=== PATIENT | male | born 1975 | race Caucasian/White ===

== ENCOUNTER 2016-08-15 05:04 | Emergency (ER) | payer OTHER ==
--- NOTE | 2016-08-15 07:20 | ED ---
Lower Extremity - HPI Summary HPI Summary: Patient presents with left knee pain that began three days ago without known injury and has become progressively more painful. He denies previous injury to this knee. He is morbidly obese and does a lot of walking, so he thinks he could have "just walked too much". He feels like he can't bend the knee, but denies instability, locking or catching. Denies calf pain or SOB. - History of Current Complaint Chief Complaint: EDExtremityLower Stated Complaint: LT KNEE PAIN/SWELLING Time Seen by Provider: 08/15/16 05:05 Hx Obtained From: Patient Mechanism Of Injury: Unknown Onset of Pain: Days - 3 Onset/Duration: Days - three days ago Severity Initially: Moderate Severity Currently: Moderate Pain Intensity: 4 Timing: Constant Location: Is Discrete @ - left knee Character Of Pain: Aching, Stiffness Associated Signs And Symptoms: Positive: Swelling, Knee Pain Aggravating Factor(s): Standing, Ambulation, Movement Alleviating Factor(s): Rest Able to Bear Weight: Yes - with pain - Allergies/Home Medications Allergies/Adverse Reactions: Allergies Allergy/AdvReac Type Severity Reaction Status Date / Time Penicillins Allergy Unknown Unknown Verified 10/31/15 07:35 Reaction Details seasonal Allergy Unknown Congestion Uncoded 10/31/15 07:35 PMH/Surg Hx/FS Hx/Imm Hx Endocrine/Hematology History: Denies: Hx Anticoagulant Therapy, Hx Diabetes, Hx Thyroid Disease Cardiovascular History: Reports: Hx Hypercholesterolemia, Hx Hypertension, Other Cardiovascular Problems/Disorders - HYPERTENSION Denies: Hx Congestive Heart Failure, Hx Pacemaker/ICD Respiratory History: Reports: Hx Sleep Apnea - evaluation for 10/2013, Other Respiratory Problems/Disorders - ex-smoker Denies: Hx Asthma, Hx Chronic Obstructive Pulmonary Disease (COPD) GI History: Reports: Hx Gastroesophageal Reflux Disease, Other GI Disorders - HYPERCHOLESTEROLEMIA History: Reports: Hx Kidney Stones - hx Denies: Hx Dialysis, Hx Renal Disease Musculoskeletal History: Reports: Other Musculoskeletal History - severe morbid obesity Neurological History: Denies: Hx Dementia, Hx Seizures Psychiatric History: Reports: Hx Anxiety, Hx Depression - meds Denies: Hx Substance Abuse Infectious Disease History: No Infectious Disease History: Denies: Hx Hepatitis, Hx Human Immunodeficiency Virus (HIV), Traveled Outside the [place] in Last 30 Days - Family History Known Family History: Positive: Hypertension, Other - MS - Social History Occupation: Unemployed Lives: Alone Alcohol Use: Rare Hx Substance Use: No Substance Use Type: Reports: None Hx Tobacco Use: Yes - QUIT 04/2006 Smoking Status (MU): Former Smoker Review of Systems Positive: Myalgia, Decreased ROM Negative: Weakness, Paresthesia, Numbness All Other Systems Reviewed And Are Negative: Yes Physical Exam Triage Information Reviewed: Yes Vital Signs On Initial Exam: Initial Vitals Temp Pulse Resp BP Pulse Ox 98.9 F 87 20 141/77 94 08/15/16 05:35 08/15/16 05:35 08/15/16 05:35 08/15/16 05:35 08/15/16 05:35 Vital Signs Reviewed: Yes Appearance: Positive: Well-Appearing, No Pain Distress, Obese Skin: Positive: Warm, Skin Color Reflects Adequate Perfusion, Dry, Soft Head/Face: Positive: Normal Head/Face Inspection Eyes: Positive: EOMI, FRANCHESCA, Conjunctiva Clear ENT: Positive: Hearing grossly normal Respiratory/Lung Sounds: Positive: Breath Sounds Present Cardiovascular: Positive: RRR Musculoskeletal: Positive: Limited @ - extension to 0, flexion to 70, Pain @ - TTP lateral joint line and LCL; non-tender medial joint, MCL, patella; stable varus/valgus stress; body habitus limits exams.. Negative: Edema Left Neurological: Positive: Sensory/Motor Intact, Alert, Oriented to Person Place, Time, NV Bundle Intact Distally, Abnormal Gait Psychiatric: Positive: Affect/Mood Appropriate AVPU Assessment: Alert - Melvin Coma Scale Coma Scale Total: 15 Diagnostics - Vital Signs Vital Signs Temp Pulse Resp BP Pulse Ox 08/15/16 06:00 87 95 08/15/16 05:43 89 93 08/15/16 05:35 98.9 F 87 20 141/77 94 - Laboratory Lab Statement: Any lab studies that have been ordered have been reviewed, and results considered in the medical decision making process. - Radiology No standard instances Xray Interpretation: No Acute Changes Radiology Interpretation Completed By: Radiologist Lower Extremity Course/Dx - Diagnoses Differential Diagnosis/HQI/PQRI: Positive: Arthritis, Bursitis, Cellulitis, Contusion, Dislocation, DVT, Fracture (Closed), Infection, Sprain, Strain Provider Diagnoses: Swelling of left knee joint Discharge - Discharge Plan Condition: Stable Disposition: HOME Patient Education Materials: Swollen Knee Joint (ED) Referrals: Najma Snowden MD [Primary Care Provider] - Additional Instructions: Please rest your knee, elevate above your heart, use Ibuprofen 600mg three times daily with meals, and ice several times daily to help reduce swelling and pain. It can take knee swelling 7-10 days to improve. Follow-up with your primary care provider as scheduled or return to the emergency department if your symptoms worsen.
--- NOTE | 2016-08-15 07:22 | RAD ---
INDICATION: Left knee pain COMPARISON: October 31, 2015 TECHNIQUE: AP, lateral, and oblique views were obtained. FINDINGS: The bony structures, joint spaces, and soft tissues are normal for age. IMPRESSION: NO ACUTE BONY CHANGE.
[2016-08-15 07:30] VITALS: BP 134/75
== END 2016-08-15 07:34 | disposition home or self-care (01) ==
LOC: ED 05:04
DX: M25.462 Effusion, left knee (principal); E66.01 Morbid (severe) obesity due to excess calories; Z88.0 Allergy status to penicillin; I10 Essential (primary) hypertension; E78.00 Pure hypercholesterolemia, unspecified; G47.30 Sleep apnea, unspecified; Z87.891 Personal history of nicotine dependence; K21.9 Gastro-esophageal reflux disease without esophagitis; F41.9 Anxiety disorder, unspecified; F32.9 Major depressive disorder, single episode, unspecified; Z68.43 Body mass index [BMI] 50.0-59.9, adult
CPT/HCPCS: 99281

== ENCOUNTER 2016-10-15 06:43 | Emergency (ER) | payer OTHER ==
[2016-10-15] MEDS ORDERED: Naproxen TAB* 250 MG PO ONE (07:57)
[2016-10-15 09:01] LABS: Hematocrit 47 % (42-52); Hemoglobin 15.6 g/dl (14.0-18.0); Mean Corpuscular HGB Conc 33 g/dl (31-36); Mean Corpuscular Hemoglobin 30 pg (27-31); Mean Corpuscular Volume 89 fL (80-94); Mean Platelet Volume 9 um3 (7.4-10.4); Red Blood Count 5.27 10^6/ul (4.0-5.4); Red Cell Distribution Width 13 % (10.5-15); White Blood Count 5.9 10^3/ul (3.5-10.8)
[2016-10-15 09:15] LABS: Albumin 3.9 g/dL (3.2-5.2); BUN/Creatinine Ratio 12.7 (8-20); Calcium 8.8 mg/dL (8.6-10.3); EGFR African American 140.4 (>60); EGFR Non-African American 109.2 (>60); Globulin 2.7 g/dL (2-4); Potassium 3.8 mmol/L (3.5-5.0); Total Bilirubin 0.4 mg/dL (0.2-1.0); Total Protein 6.6 g/dL (6.4-8.9); Uric Acid 5.6 mg/dL (4.4-7.6)
[2016-10-15 10:10] LABS: Erythrocyte Sed Rate 0 mm/Hr (0-14)
[2016-10-15 10:48] VITALS: BP 138/90
[2016-10-16 15:19] LABS: Rheumatoid Factor <15 IU/mL (<15)
--- NOTE | 2016-10-19 14:58 | ED ---
Valentino Beavers Matthew, scribed for Robert Mendoza MD on 10/15/16 at 0804 . Upper Extremity Pain - HPI Summary HPI Summary: A 41 y/o male presents to the ED with right elbow pain since a week ago. The pain is rated 4/10 in severity. The pain is worse with extension of the elbow and griping objects. The patient denies trauma, overuse, or any other injuries. The patient took ibuprofen at 02:00 with some relief. Hx of psoriasis. No Hx of Diabetes - History of Current Complaint Chief Complaint: EDExtremityUpper Stated Complaint: RIGHT ELBOW PAIN Time Seen by Provider: 10/15/16 07:26 Hx Obtained From: Patient Mechanism Of Injury: Unknown Onset/Duration: Started Weeks Ago - 1, Atraumatic, Still Present Timing: Constant Severity Initially: Moderate Severity Currently: Moderate Pain Location: Elbow - RT Aggravating Factor(s): Extension, Other - griping large objects with the right hand Alleviating Factor(s): Nothing Associated Signs & Symptoms: Positive: Other - restricted ROM of the left elbow - Allergies/Home Medications Allergies/Adverse Reactions: Allergies Allergy/AdvReac Type Severity Reaction Status Date / Time Penicillins Allergy Unknown Unknown Verified 10/31/15 07:35 Reaction Details seasonal Allergy Unknown Congestion Uncoded 10/31/15 07:35 PMH/Surg Hx/FS Hx/Imm Hx Endocrine/Hematology History: Denies: Hx Anticoagulant Therapy, Hx Diabetes, Hx Thyroid Disease Cardiovascular History: Reports: Hx Hypercholesterolemia, Hx Hypertension, Other Cardiovascular Problems/Disorders - HYPERTENSION Denies: Hx Congestive Heart Failure, Hx Pacemaker/ICD Respiratory History: Reports: Hx Sleep Apnea - evaluation for 10/2013, Other Respiratory Problems/Disorders - ex-smoker Denies: Hx Asthma, Hx Chronic Obstructive Pulmonary Disease (COPD) GI History: Reports: Hx Gastroesophageal Reflux Disease, Other GI Disorders - HYPERCHOLESTEROLEMIA History: Reports: Hx Kidney Stones - hx Denies: Hx Dialysis, Hx Renal Disease Musculoskeletal History: Reports: Other Musculoskeletal History - severe morbid obesity Neurological History: Denies: Hx Dementia, Hx Seizures Psychiatric History: Reports: Hx Anxiety, Hx Depression - meds Denies: Hx Substance Abuse Infectious Disease History: No Infectious Disease History: Denies: Hx Hepatitis, Hx Human Immunodeficiency Virus (HIV), Traveled Outside the [place] in Last 30 Days - Family History Known Family History: Positive: Hypertension, Other - MS - Social History Alcohol Use: Rare Hx Substance Use: No Substance Use Type: Reports: None Hx Tobacco Use: Yes - QUIT 04/2006 Smoking Status (MU): Former Smoker Review of Systems Constitutional: Negative Negative: Fever, Chills Eyes: Negative Negative: Erythema ENT: Negative Negative: Sore Throat Cardiovascular: Negative Negative: Chest Pain Respiratory: Negative Negative: Shortness Of Breath, Cough Gastrointestinal: Negative Negative: Abdominal Pain, Vomiting, Diarrhea, Nausea Genitourinary: Negative Negative: dysuria, hematuria Positive: Myalgia - RT elbow pain Skin: Other - psoriasis Neurological: Negative Negative: Weakness Psychological: Normal All Other Systems Reviewed And Are Negative: Yes Physical Exam Triage Information Reviewed: Yes Vital Signs On Initial Exam: Initial Vitals Temp Pulse Resp BP Pulse Ox 98.9 F 93 22 153/89 96 10/15/16 06:51 10/15/16 06:51 10/15/16 06:51 10/15/16 06:51 10/15/16 06:51 Vital Signs Reviewed: Yes Appearance: Positive: Obese - Morbidly Skin: Positive: Other - diffuse psoriasis Head/Face: Positive: Other - Normocephalic; Atraumatic Eyes: Positive: Conjunctiva Clear Neck: Positive: No Lymphadenopathy, Other: - Full ROM; NO JVD Respiratory/Lung Sounds: Positive: Breath Sounds Present, Other - Normal Effort. Negative: Rales, Rhonchi, Stridor, Tracheal Deviation, Wheezes Cardiovascular: Positive: RRR, Pulses are Symmetrical in both Upper and Lower Extremities Abdomen Description: Positive: Nontender, Soft, Other: - NO rebound. Negative: Distended, Guarding Bowel Sounds: Positive: Present Musculoskeletal: Positive: Other - diminished active and passive ROM of the right elbow; rose mary tenderness over the right elbow joint; NO hand swelling or tenderness; Full care technician strength; NO erythema; NO swelling Neurological: Positive: Alert, Oriented to Person Place, Time Psychiatric: Positive: Affect/Mood Appropriate - Melvin Coma Scale Coma Scale Total: 15 Diagnostics - Vital Signs Vital Signs Temp Pulse Resp BP Pulse Ox 10/15/16 07:13 81 98 10/15/16 07:11 145/86 10/15/16 06:51 98.9 F 93 22 153/89 96 - Laboratory Result Diagrams: 10/15/16 08:40 10/15/16 08:40 Lab Statement: Any lab studies that have been ordered have been reviewed, and results considered in the medical decision making process. Course/Dx - Course Assessment/Plan: A 41 y/o male presents to the ED with right elbow pain since a week ago. The pain is rated 4/10 in severity. The pain is worse with extension of the elbow and griping objects. The patient denies trauma, overuse, or any other injuries. Labs were reviewed. In the ED course, the patient was give naproxen. The patient will be discharged home to follow-up with his PCP. - Diagnoses Provider Diagnoses: Elbow tendinitis Discharge - Discharge Plan Condition: Stable Disposition: HOME Prescriptions: Naproxen TAB* [Naprosyn TAB*] 500 mg PO Q8H PRN #15 tab PRN Reason: Pain Scale 6-10 Patient Education Materials: Tendinitis (ED) Referrals: Najma Snowden MD [Primary Care Provider] - 3 Days Additional Instructions: Please follow-up with your primary care physician in 3 days. Please return to the ED for changing or worsening symptoms. The documentation as recorded by the Valentino siddiqui Matthew accurately reflects the service I personally performed and the decisions made by , Robert Mendoza MD.
== END 2016-10-15 10:47 | disposition home or self-care (01) ==
LOC: ED 06:43
DX: M77.9 Enthesopathy, unspecified (principal)
CPT/HCPCS: 36415; 80053; 84550; 85027; 85652; 86038; 86141; 86431; 87040; 99283; A9270-GY

== ENCOUNTER 2016-11-12 04:25 | Emergency (ER) | payer OTHER ==
--- NOTE | 2016-11-12 04:51 | ED ---
I, Jerson,Yennifer, scribed for Dyllan Lucas MD on 11/12/16 at 0443 . Upper Extremity Pain - HPI Summary HPI Summary: This 41 y/o male presents to ED for gradually worsening right elbow pain since 3 days ago. Pt c/o limited ROM and pain that is worse with movement. Pt attempted to control his pain with ibuprofen, which he uses chronically for about a month. He decided to visit ED when he wasn't able to get an appointment in near future with his own primary care provider. PMHx includes HTN, HLD, psoriasis, and GERD. - History of Current Complaint Stated Complaint: RT ELBOW PAIN Hx Obtained From: Patient, Medical Records Mechanism Of Injury: Unknown Onset/Duration: Started Days Ago, Atraumatic, Still Present Timing: Constant Severity Initially: Moderate Severity Currently: Moderate Pain Location: Elbow - right elbow pain Character: Dull Aggravating Factor(s): Movement Alleviating Factor(s): Nothing Associated Signs & Symptoms: Positive: Other - limited ROM - Allergies/Home Medications Allergies/Adverse Reactions: Allergies Allergy/AdvReac Type Severity Reaction Status Date / Time Penicillins Allergy Unknown Unknown Verified 10/31/15 07:35 Reaction Details seasonal Allergy Unknown Congestion Uncoded 10/31/15 07:35 PMH/Surg Hx/FS Hx/Imm Hx Endocrine/Hematology History: Denies: Hx Anticoagulant Therapy, Hx Diabetes, Hx Thyroid Disease Cardiovascular History: Reports: Hx Hypercholesterolemia, Hx Hypertension, Other Cardiovascular Problems/Disorders - HYPERTENSION Denies: Hx Congestive Heart Failure, Hx Pacemaker/ICD Respiratory History: Reports: Hx Sleep Apnea - evaluation for 10/2013, Other Respiratory Problems/Disorders - ex-smoker Denies: Hx Asthma, Hx Chronic Obstructive Pulmonary Disease (COPD) GI History: Reports: Hx Gastroesophageal Reflux Disease, Other GI Disorders - HYPERCHOLESTEROLEMIA History: Reports: Hx Kidney Stones - hx Denies: Hx Dialysis, Hx Renal Disease Musculoskeletal History: Reports: Other Musculoskeletal History - severe morbid obesity Neurological History: Denies: Hx Dementia, Hx Seizures Psychiatric History: Reports: Hx Anxiety, Hx Depression - meds Denies: Hx Substance Abuse Infectious Disease History: Denies: Hx Hepatitis, Hx Human Immunodeficiency Virus (HIV) - Family History Known Family History: Positive: Hypertension, Other - MS - Social History Alcohol Use: Rare Hx Substance Use: No Substance Use Type: Reports: None Hx Tobacco Use: Yes - QUIT 04/2006 Smoking Status (MU): Former Smoker Review of Systems Negative: Fever Positive: Other - right elbow pain All Other Systems Reviewed And Are Negative: Yes Physical Exam Triage Information Reviewed: Yes Vital Signs Reviewed: Yes Appearance: Positive: No Pain Distress, Obese Skin: Positive: Warm Head/Face: Positive: Normal Head/Face Inspection Eyes: Positive: FRANCHESCA ENT: Positive: Hearing grossly normal Respiratory/Lung Sounds: Positive: Breath Sounds Present Musculoskeletal: Positive: Other - rt elbow with psoriatic rash, from, no deformity Neurological: Positive: Sensory/Motor Intact Diagnostics - Laboratory Lab Statement: Any lab studies that have been ordered have been reviewed, and results considered in the medical decision making process. - Radiology Right elbow Xray Interpretation: No Acute Changes Radiology Interpretation Completed By: ED Physician Course/Dx - Diagnoses Provider Diagnoses: Elbow pain Discharge - Discharge Plan Condition: Stable Disposition: HOME Patient Education Materials: Elbow Sprain (ED) Referrals: Najma Snowden MD [Primary Care Provider] - 2 Days Emilie Tian MD [Medical Doctor] - The documentation as recorded by the Jerson siddiqui Soohyun accurately reflects the service I personally performed and the decisions made by , Dyllan Lucas MD.
[2016-11-12 05:02] VITALS: BP 159/89
--- NOTE | 2016-11-12 08:04 | RAD ---
HISTORY: Right elbow pain COMPARISONS: None VIEWS: 4, Frontal, lateral, and oblique views of the right elbow FINDINGS: BONE DENSITY: Normal. BONES: There is no displaced fracture. JOINTS: There is no arthropathy. There is no posterior supracondylar fat pad to suggest a joint effusion. ALIGNMENT: There is no dislocation. SOFT TISSUES: Unremarkable. OTHER FINDINGS: None. IMPRESSION: NO ACUTE OSSEOUS INJURY. IF SYMPTOMS PERSIST, RECOMMEND REPEAT IMAGING.
== END 2016-11-12 05:01 | disposition home or self-care (01) ==
LOC: ED 04:25
DX: M25.521 Pain in right elbow (principal); I10 Essential (primary) hypertension; K21.9 Gastro-esophageal reflux disease without esophagitis; E78.5 Hyperlipidemia, unspecified; Z88.0 Allergy status to penicillin; Z87.891 Personal history of nicotine dependence
CPT/HCPCS: 99281

== ENCOUNTER 2017-01-12 04:31 | Emergency (ER) | payer OTHER ==
[2017-01-12] MEDS ORDERED: NS 0.9% 1000 ML* 1,000 ML IV ONE (05:08)
[2017-01-12] MEDS ORDERED: Morphine INJ* 4 MG/ML 1 ML SYRINGE IV ONE (05:08)
[2017-01-12] MEDS ORDERED: Ondansetron INJ* 2 MG/ML VIAL IV ONE (05:08)
[2017-01-12 05:36] LABS: Hematocrit 46 % (42-52); Hemoglobin 15.6 g/dl (14.0-18.0); Mean Corpuscular HGB Conc 34 g/dl (31-36); Mean Corpuscular Hemoglobin 30 pg (27-31); Mean Corpuscular Volume 88 fL (80-94); Mean Platelet Volume 9 um3 (7.4-10.4); Red Blood Count 5.26 10^6/ul (4.0-5.4); Red Cell Distribution Width 13 % (10.5-15); White Blood Count 7.4 10^3/ul (3.5-10.8)
[2017-01-12 05:52] LABS: ALT 30 U/L (7-52); Albumin 4.1 g/dL (3.2-5.2); Alkaline Phosphatase 72 U/L (34-104); Blood Urea Nitrogen 20 mg/dL (6-24); C Reactive Protein 3.47 mg/L (< 5.00); CO2 Carbon Dioxide 20 mmol/L (22-32); Calcium 8.9 mg/dL (8.6-10.3); Chloride 107 mmol/L (101-111); EGFR African American 94.8 (>60); EGFR Non-African American 73.7 (>60); Globulin 2.9 g/dL (2-4); Glucose 129 mg/dL (70-100); Lipase 18 U/L (11.0-82.0); Sodium 137 mmol/L (133-145)
[2017-01-12 05:57] LABS: Anion Gap 10 mmol/L (2-11)
[2017-01-12 06:25] LABS: Magnesium 1.6 mg/dL (1.9-2.7)
[2017-01-12] MEDS ORDERED: Magnesium Sulfate 2 GM IV* 2 GM/50 ML BAG IVPB ONE (06:26)
--- NOTE | 2017-01-12 06:27 | ED ---
Wild Beavers Aidan, scribed for Gini Maria MD on 01/12/17 at 0620 . Abdominal Pain/Male - HPI Summary HPI Summary: 41 y/o male presents to the ED with a complaint of acute, [id number] ( current pain is 3/10) episodes of left-sided abdominal pain that has persisted for the past 4 days. 4 days ago, he developed nausea after a meal. 3 days ago, he took Pepto-Bismol which slightly alleviated his abdominal pain for roughly 6 hours. When the pain came back, it became constant. Associated symptoms include intermittent episodes of vomiting and flatus. He denies any diarrhea. - History of Current Complaint Chief Complaint: EDAbdPain Stated Complaint: UPSET STOMACH Time Seen by Provider: 01/12/17 05:08 Hx Obtained From: Patient Onset/Duration: Sudden Onset, Lasting Days, Still Present Timing: Intermittent - initially intermittent but pain became constant Severity Initially: Moderate Severity Currently: Mild Pain Intensity: 3 - current pain Pain Scale Used: 0-10 Numeric Location: Discrete At: LUQ, Discrete At: LLQ Radiates: No Character: Sharp Aggravating Factor(s): Other: - unknown, however, sx were first noticed after eating Alleviating Factor(s): Other: - Pepto-Bismol Associated Signs And Symptoms: Positive: Nausea, Vomiting, Other - flatus. Negative: Diarrhea - Allergies/Home Medications Allergies/Adverse Reactions: Allergies Allergy/AdvReac Type Severity Reaction Status Date / Time Penicillins Allergy Unknown Unknown Verified 10/31/15 07:35 Reaction Details seasonal Allergy Unknown Congestion Uncoded 10/31/15 07:35 PMH/Surg Hx/FS Hx/Imm Hx Endocrine/Hematology History: Denies: Hx Anticoagulant Therapy, Hx Diabetes, Hx Thyroid Disease Cardiovascular History: Reports: Hx Hypercholesterolemia, Hx Hypertension, Other Cardiovascular Problems/Disorders - HYPERTENSION Denies: Hx Congestive Heart Failure, Hx Pacemaker/ICD Respiratory History: Reports: Hx Sleep Apnea - evaluation for 10/2013, Other Respiratory Problems/Disorders - ex-smoker Denies: Hx Asthma, Hx Chronic Obstructive Pulmonary Disease (COPD) GI History: Reports: Hx Gastroesophageal Reflux Disease, Other GI Disorders - HYPERCHOLESTEROLEMIA History: Reports: Hx Kidney Stones - hx Denies: Hx Dialysis, Hx Renal Disease Musculoskeletal History: Reports: Other Musculoskeletal History - severe morbid obesity Denies: Hx Osteoporosis Neurological History: Denies: Hx Dementia, Hx Seizures Psychiatric History: Reports: Hx Anxiety, Hx Depression - meds Denies: Hx Substance Abuse Infectious Disease History: No Infectious Disease History: Denies: Hx Hepatitis, Hx Human Immunodeficiency Virus (HIV), Traveled Outside the [place] in Last 30 Days - Family History Known Family History: Positive: Hypertension, Other - MS, hypercholesteremia - Social History Occupation: Unemployed Lives: With Family Alcohol Use: Rare Hx Substance Use: No Substance Use Type: Reports: None Hx Tobacco Use: Yes - QUIT 04/2006 Smoking Status (MU): Former Smoker Review of Systems - ROS Summary Review of Systems Summary: 41 y/o male presents to the ED with a complaint of acute, moderate episodes of left-sided abdominal pain that has persisted for the past 4 days. 4 days ago, he developed nausea after a meal. 3 days ago, he took Pepto-Bismol which slightly alleviated his abdominal pain for roughly 6 hours. When the pain came back, it became constant. Associated symptoms include intermittent episodes of vomiting and flatus. He denies any diarrhea. Constitutional: Negative Eyes: Negative ENT: Negative Cardiovascular: Negative Respiratory: Negative Positive: Abdominal Pain, Vomiting, Nausea, Other - flatus. Negative: Diarrhea Genitourinary: Negative Musculoskeletal: Negative Skin: Negative Neurological: Negative Psychological: Normal All Other Systems Reviewed And Are Negative: Yes Physical Exam - Summary Physical Exam Summary: General: Well appearing, no pain distress Skin: Warm, Skin Color Reflects Adequate Perfusion, Dry Eyes: EOMI, FRANCHESCA ENT: Pharynx normal, TMs normal Neck: Supple, nontender Respiratory: CTA, breath sounds present, no rhonchi, no wheezes, no rales Cardiovascular: RRR, no murmur, no rub, no gallop Abdomen: Soft, Non-distended, no guarding, no rebound; POSITIVE: LLQ pain Bowel: Present Musculoskeletal: [place], No edema Neuro: Sensory/motor intact, A&Ox3, CN intact 2-12 Psych: Affect/mood appropriate Triage Information Reviewed: Yes Vital Signs On Initial Exam: Initial Vitals Temp Pulse Resp BP Pulse Ox 97.7 F 94 18 142/94 97 01/12/17 04:41 01/12/17 04:41 01/12/17 04:41 01/12/17 04:41 01/12/17 04:41 Vital Signs Reviewed: Yes - [place] Coma Scale Coma Scale Total: 15 Diagnostics - Vital Signs Vital Signs Temp Pulse Resp BP Pulse Ox 01/12/17 05:22 18 01/12/17 04:43 97.7 F 94 18 142/94 97 01/12/17 04:41 97.7 F 94 18 142/94 97 - Laboratory Lab Results: Lab Results 01/12/17 01/12/17 Range/Units 05:25 05:25 WBC 7.4 (3.5-10.8) 10^3/ul RBC 5.26 (4.0-5.4) 10^6/ul Hgb 15.6 (14.0-18.0) g/dl Hct 46 (42-52) % MCV 88 (80-94) fL MCH 30 (27-31) pg MCHC 34 (31-36) g/dl RDW 13 (10.5-15) % Plt Count 247 (150-450) 10^3/ul MPV 9 (7.4-10.4) um3 Neut % (Auto) 61.0 (38-83) % Lymph % (Auto) 24.3 L (25-47) % [place] % (Auto) 8.3 (1-9) % Eos % (Auto) 2.9 (0-6) % Baso % (Auto) 3.5 H (0-2) % Absolute Neuts (auto) 4.5 (1.5-7.7) 10^3/ul Absolute Lymphs (auto) 1.8 (1.0-4.8) 10^3/ul Absolute Monos (auto) 0.6 (0-0.8) 10^3/ul Absolute Eos (auto) 0.2 (0-0.6) 10^3/ul Absolute Basos (auto) 0.3 H (0-0.2) 10^3/ul Absolute Nucleated RBC 0 10^3/ul Nucleated RBC % 0.1 Sodium 137 (133-145) mmol/L Potassium TNP Chloride 107 (101-111) mmol/L Carbon Dioxide 20 L (22-32) mmol/L Anion Gap 10 (2-11) mmol/L BUN 20 (6-24) mg/dL Creatinine 1.11 (0.67-1.17) mg/dL Est GFR ( Amer) 94.8 (>60) Est GFR (Non-Af Amer) 73.7 (>60) BUN/Creatinine Ratio 18.0 (8-20) Glucose 129 H (70-100) mg/dL Calcium 8.9 (8.6-10.3) mg/dL Magnesium TNP Total Bilirubin 0.50 (0.2-1.0) mg/dL AST TNP ALT 30 (7-52) U/L Alkaline Phosphatase 72 (34-104) U/L C-Reactive Protein 3.47 (< 5.00) mg/L Total Protein 7.0 (6.4-8.9) g/dL Albumin 4.1 (3.2-5.2) g/dL Globulin 2.9 (2-4) g/dL Albumin/Globulin Ratio 1.4 (1-3) Lipase 18 (11.0-82.0) U/L Result Diagrams: 01/12/17 05:25 01/12/17 06:00 Lab Statement: Any lab studies that have been ordered have been reviewed, and results considered in the medical decision making process. Abdominal Pain Fem Course/Dx - Course Course Of Treatment: 41 yo male llq pain awaiting urine and ct will be signed out to Dr. Rosas - Diagnoses Provider Diagnoses: Abdominal pain Discharge - Discharge Plan Condition: Stable Disposition: OTHER Discharge Disposition Comment: to be determined The documentation as recorded by the Wild siddiqui Aidan accurately reflects the service I personally performed and the decisions made by me, Gini Maria MD.
[2017-01-12] MEDS ORDERED: Iohexol 300* (CONTRAST) 10 ML SDV IV ONE (06:30)
[2017-01-12 06:54] LABS: Urine Bacteria Absent (Absent); Urine Bilirubin Negative (Negative); Urine Glucose 1+(50 mg/dL) (Negative); Urine Nitrite Negative (Negative)
--- NOTE | 2017-01-12 09:03 | RAD ---
CLINICAL HISTORY: Left lower quadrant pain. COMPARISON: Similar examination November 24, 2013 TECHNIQUE: Contrast enhanced CT examination of the abdomen and pelvis from the lung bases through the initial tuberosities. The patient received 150 mL Omnipaque 300 intravenously prior to imaging.The patient received oral contrast as well prior to imaging. FINDINGS: VISUALIZED LUNG BASES: The visualized lung bases are grossly clear. There is no pleural effusion. ABDOMEN AND PELVIS: The liver, spleen, pancreas and adrenal glands are grossly normal in appearance. The gallbladder is normal. The kidneys are normal in appearance without focal mass, calcification or signs of hydronephrosis. The oral contrast has progressed only as far as the distal small bowel which limits evaluation of the colon. The small and large bowel are not distended. The patient's normal appendix is identified in the right lower quadrant measuring 6 mm in diameter (image 68). There is no gross retroperitoneal or mesenteric lymphadenopathy. The pelvic viscera is normal in appearance. The mildly calcified abdominal aorta and iliac arteries are normal in course and diameter. 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 Degenerative changes at other levels include loss of intervertebral disc height. IMPRESSION: 1. No CT evidence of focal inflammatory change or obstruction involving the gastrointestinal tract. 2. Chronic findings similar appearance to the November 24, 2013 CT examination that are unlikely to be related to the patient's current presentation.
[2017-01-12 09:55] VITALS: BP 147/94
--- NOTE | 2017-01-12 10:08 | ED ---
I, Oh,Soohyun, scribed for Kiko Rosas MD on 01/12/17 at 0723 . Progress - Progress Note Progress Note: Signed out at shift change from Dr. Maria. This 41 y/o male presents to ED for LLQ abd pain that has been intermittent since 4 days ago. Abd pain lasts minutes before spontaneous resolution. Positive n/v since 1-2 days ago. Negative diarrhea. Plan of care involving CT Ab/P is discussed with pt and he is agreeable at this time. - Results/Orders Results/Orders: CT Ab/P -- 1. No CT evidence of focal inflammatory change or obstruction involving the gastrointestinal tract. 2. Chronic findings similar appearance to the November 24, 2013 CT examination that are unlikely to be related to the patient's current presentation. EKG at 0939 am -- NSR with [address] Physical Exam - Summary Physical Exam Summary: VITAL SIGNS: Reviewed. GENERAL: Patient is a well-developed and OBESE male who is lying comfortable in the stretcher. Patient is not in any acute respiratory distress. HEAD AND FACE: Normocephalic and atraumatic. EYES: PERRLA, EOMI x 2, No injected conjunctiva. EARS: Hearing grossly intact. Ear canals and tympanic membranes are WNL. MOUTH: Oropharynx within normal limits. NECK: Supple, trachea is midline, no adenopathy, no JVD. CHEST: Symmetric, no tenderness at palpation LUNGS: Clear to auscultation bilaterally. No wheezing or crackles. CVS: RRR, S1 and S2 present, no murmurs or gallops appreciated. ABDOMEN: Soft. Positive LLQ tenderness. No signs of distention. Positive bowel sounds. No rebound no guarding, and no masses palpated. No abdominal bruit or pulsations. EXTREMITIES: FROM in all major joints, no edema, no cyanosis or clubbing. NEURO: Alert and oriented x 3. No acute neurological deficits. Speech is normal. SKIN: Dry and warm Triage Information Reviewed: Yes Vital Signs On Initial Exam: Initial Vitals Temp Pulse Resp BP Pulse Ox 97.7 F 94 18 142/94 97 01/12/17 04:41 01/12/17 04:41 01/12/17 04:41 01/12/17 04:41 01/12/17 04:41 Vital Signs Reviewed: Yes - Melvin Coma Scale Coma Scale Total: 15 Re-Evaluation - Re-Evaluation First Eval Re-Evaluation Time: 09:21 Comment: MD in room to update pt on CT imaging results. Upon re-examination, pt is noted with small pimple with mild erythema on LLQ, and pt reports pain when palpated in that area. Course/Dx - Course Course Of Treatment: Pt has been signed out by Dr. Maria at shift change, and pt is to be evaluated for possible diverticulitis. CT Ab/P indicates no CT evidence of focal inflammatory change or obstruction involving the gastrointestinal tract, and chronic findings similar appearance to the October CT examination that are unlikely to be related to the patient's current presentation. Upon re-examination Pt is noted less tender at LLQ but noted with painful pimple with mild erythema over LLQ although it appears not infectious and superficial. CT does not show any abnormality. Pt will be dicharged with outpatient f/u. Pt is alert and Ox3. I discussed all the findings and test results with the patient. Patient was instructed to return to the emergency room immediately if any of the symptoms return or worsens. They were explained the possibility of an early abdominal pathology which was not detected at this time despite the physical exam and testing. They understand and agree. Abdominal exam before discharge: Soft, NT. No signs of distention. BS present. No rebound no guarding, and no masses palpated. Patient is alert and oriented and hemodynamically stable. Patient is to follow up with primary care physician in the next 2 to 3 days. Patient agree and understands. - Diagnoses Provider Diagnoses: Abdominal pain The documentation as recorded by the Jerson siddiqui Soohyun accurately reflects the service I personally performed and the decisions made by me, Kiko Rosas MD.
== END 2017-01-12 09:55 ==
LOC: ED 04:31
DX: R10.12 Left upper quadrant pain (principal); R10.32 Left lower quadrant pain; R11.2 Nausea with vomiting, unspecified; Z88.0 Allergy status to penicillin; E78.00 Pure hypercholesterolemia, unspecified; I10 Essential (primary) hypertension; K21.9 Gastro-esophageal reflux disease without esophagitis; Z87.442 Personal history of urinary calculi; E66.01 Morbid (severe) obesity due to excess calories; F41.9 Anxiety disorder, unspecified; F32.9 Major depressive disorder, single episode, unspecified; Z87.891 Personal history of nicotine dependence
CPT/HCPCS: 36415; 74177; 80053; 81003; 81015; 83690; 83735; 85025; 86140; 93005; 96361; 96365; 96375; 99282; J2270; J2405; Q9967

== ENCOUNTER 2017-04-01 05:13 | Emergency (ER) | payer OTHER ==
[2017-04-01 05:18] VITALS: BP 144/89
[2017-04-01 05:50] LABS: Hematocrit 43 % (42-52); Mean Corpuscular HGB Conc 35 g/dl (31-36); Mean Corpuscular Hemoglobin 31 pg (27-31); Mean Corpuscular Volume 88 fL (80-94); Mean Platelet Volume 8 um3 (7.4-10.4); Red Blood Count 4.91 10^6/ul (4.0-5.4); Red Cell Distribution Width 13 % (10.5-15)
[2017-04-01 06:06] LABS: BUN/Creatinine Ratio 12.1 (8-20); Calcium 9.2 mg/dL (8.6-10.3); EGFR African American 118.7 (>60); EGFR Non-African American 92.3 (>60); Potassium 3.6 mmol/L (3.5-5.0)
--- NOTE | 2017-04-01 06:34 | ED ---
David Beavers Rebecca, scribed for Dyllan Lucas MD on 04/01/17 at 0529 . Throat Pain/Nasal Congestion - HPI Summary HPI Summary: Pt is a 42 y/o M who presents to ED c/o tongue pain. Sx began 3 days ago and are currently moderate, ranked 7/10. Pain is described as burning, stating it feels as though it is on fire. Pt reports any treatments tried previously have not helped. - History of Current Complaint Chief Complaint: EDGeneral Time Seen by Provider: 04/01/17 05:24 Hx Obtained From: Patient Onset/Duration: Lasting Days - 3 days, Still Present Severity: Moderate - 6/10 Associated Signs And Symptoms: Positive: Negative Cough: None - Allergies/Home Medications Allergies/Adverse Reactions: Allergies Allergy/AdvReac Type Severity Reaction Status Date / Time Penicillins Allergy Unknown Unknown Verified 04/01/17 05:15 Reaction Details seasonal Allergy Unknown Congestion Uncoded 04/01/17 05:15 PMH/Surg Hx/FS Hx/Imm Hx Endocrine/Hematology History: Denies: Hx Anticoagulant Therapy, Hx Diabetes, Hx Thyroid Disease Cardiovascular History: Reports: Hx Hypercholesterolemia, Hx Hypertension, Other Cardiovascular Problems/Disorders - HYPERTENSION Denies: Hx Congestive Heart Failure, Hx Pacemaker/ICD Respiratory History: Reports: Hx Sleep Apnea - evaluation for 10/2013, Other Respiratory Problems/Disorders - ex-smoker Denies: Hx Asthma, Hx Chronic Obstructive Pulmonary Disease (COPD) GI History: Reports: Hx Gastroesophageal Reflux Disease, Other GI Disorders - HYPERCHOLESTEROLEMIA History: Reports: Hx Kidney Stones - hx Denies: Hx Dialysis, Hx Renal Disease Musculoskeletal History: Reports: Other Musculoskeletal History - severe morbid obesity Denies: Hx Osteoporosis Neurological History: Denies: Hx Dementia, Hx Seizures Psychiatric History: Reports: Hx Anxiety, Hx Depression - meds Denies: Hx Substance Abuse Infectious Disease History: No Infectious Disease History: Denies: Hx Hepatitis, Hx Human Immunodeficiency Virus (HIV), Traveled Outside the [place] in Last 30 Days - Family History Known Family History: Positive: Hypertension, Other - MS, hypercholesteremia - Social History Alcohol Use: Rare Hx Substance Use: No Substance Use Type: Reports: None Hx Tobacco Use: Yes - QUIT 04/2006 Smoking Status (MU): Former Smoker Review of Systems Negative: Fever Positive: Other - Tongue burning All Other Systems Reviewed And Are Negative: Yes Physical Exam Triage Information Reviewed: Yes Vital Signs On Initial Exam: Initial Vitals Temp Pulse Resp BP Pulse Ox 97.6 F 98 16 144/89 96 04/01/17 05:17 04/01/17 05:17 04/01/17 05:17 04/01/17 05:17 04/01/17 05:17 Vital Signs Reviewed: Yes Appearance: Positive: Well-Appearing, No Pain Distress Skin: Positive: Warm Head/Face: Positive: Normal Head/Face Inspection Eyes: Positive: FRANCHESCA ENT: Positive: Pharynx normal, TMs normal, Other - tongue normal Neck: Positive: Supple Respiratory/Lung Sounds: Positive: Breath Sounds Present Cardiovascular: Positive: RRR Abdomen Description: Positive: Nontender, Soft Neurological: Positive: Sensory/Motor Intact, Normal Gait Diagnostics - Vital Signs Vital Signs Temp Pulse Resp BP Pulse Ox 04/01/17 05:17 97.6 F 98 16 144/89 96 - Laboratory Result Diagrams: 04/01/17 05:41 04/01/17 05:41 Lab Statement: Any lab studies that have been ordered have been reviewed, and results considered in the medical decision making process. EENT Course/Dx - Course Assessment/Plan: Pt is a 42 y/o M who presents to ED c/o tongue pain. Sx began 3 days ago and are currently moderate, ranked 7/10. Pain is described as burning , stating it feels as though it is on fire. Pt reports any treatments tried previously have not helped. Pt will be D/C to home with Dx of tongue pain and a follow up with ENT. He understands and agrees. - Diagnoses Provider Diagnoses: Tongue pain Discharge - Discharge Plan Condition: Stable Disposition: HOME Referrals: Shane Johnson MD [Medical Doctor] - 3 Days The documentation as recorded by the David siddiqui Rebecca accurately reflects the service I personally performed and the decisions made by me, Dyllan Lucas MD.
[2017-04-02 17:06] LABS: Albumin 3.9 g/dL (3.2-5.2); Globulin 2.8 g/dL (2-4); Total Bilirubin 0.5 mg/dL (0.2-1.0); Total Protein 6.7 g/dL (6.4-8.9)
[2017-04-02 18:01] LABS: Folate 4.84 ng/mL (>3.99)
== END 2017-04-01 06:44 | disposition home or self-care (01) ==
LOC: ED 05:13
DX: K14.6 Glossodynia (principal); Z87.891 Personal history of nicotine dependence
CPT/HCPCS: 36415; 80048; 80053; 82607; 82746; 85025; 99281

== ENCOUNTER 2017-10-11 09:15 | Emergency (ER) | payer OTHER ==
--- NOTE | 2017-10-11 10:18 | ED ---
Influenza-Like Illness - HPI Summary HPI Summary: 42 male presents to ED with complains of productive cough, chest congestion, sinus/nasal congestion that has been ongoing for the past ~10 days and worsened last night. States it was bad last week, improved some over this past week however returned and became worse again yesterday. States he produces clear phlegm with coughing. Denies hemoptysis. No fever/chills. Denies trouble breathing or SOB. Denies chest pain. No nausea, vomiting, body aches, headache or abdominal pain. No other complaints. No PMHx other than HTN and high cholesterol. Did not have flu shot this year. - History of Current Complaint Chief Complaint: EDUpperRespComplaint Time Seen by Provider: 10/11/17 09:36 Hx Obtained From: Patient Onset/Duration: Sudden Onset, Lasting Days - ~10, Still Present, Worse Since Associated Signs & Symptoms: Cough, Nasal Congestion - Allergy/Home Medications Allergies/Adverse Reactions: Allergies Allergy/AdvReac Type Severity Reaction Status Date / Time Penicillins Allergy Rash Verified 10/11/17 09:19 seasonal Allergy Unknown Congestion Uncoded 04/01/17 05:15 PMH/Surg Hx/FS Hx/Imm Hx Endocrine/Hematology History: Denies: Hx Anticoagulant Therapy, Hx Diabetes, Hx Thyroid Disease Cardiovascular History: Reports: Hx Hypercholesterolemia, Hx Hypertension, Other Cardiovascular Problems/Disorders - HYPERTENSION Denies: Hx Congestive Heart Failure, Hx Pacemaker/ICD Respiratory History: Reports: Hx Sleep Apnea - evaluation for 10/2013, Other Respiratory Problems/Disorders - ex-smoker Denies: Hx Asthma, Hx Chronic Obstructive Pulmonary Disease (COPD) GI History: Reports: Hx Gastroesophageal Reflux Disease, Other GI Disorders - HYPERCHOLESTEROLEMIA History: Reports: Hx Kidney Stones - hx Denies: Hx Dialysis, Hx Renal Disease Musculoskeletal History: Reports: Other Musculoskeletal History - severe morbid obesity Denies: Hx Osteoporosis Neurological History: Denies: Hx Dementia, Hx Seizures Psychiatric History: Reports: Hx Anxiety, Hx Depression - meds Denies: Hx Substance Abuse - Surgical History Surgery Procedure, Year, and Place: n/a - Immunization History Immunizations Up to Date: Yes Infectious Disease History: No Infectious Disease History: Denies: Hx Hepatitis, Hx Human Immunodeficiency Virus (HIV), Traveled Outside the [place] in Last 30 Days - Family History Known Family History: Positive: Hypertension, Other - MS, hypercholesteremia - Social History Alcohol Use: Rare Hx Substance Use: No Substance Use Type: Reports: None Hx Tobacco Use: Yes - QUIT 04/2006 Smoking Status (MU): Former Smoker Review of Systems Constitutional: Negative Positive: Nasal Discharge Cardiovascular: Negative Positive: Cough Musculoskeletal: Negative Neurological: Negative All Other Systems Reviewed And Are Negative: Yes Physical Exam Triage Information Reviewed: Yes Vital Signs On Initial Exam: Initial Vitals Temp Pulse Resp BP Pulse Ox 98.3 F 81 16 125/75 96 10/11/17 09:19 10/11/17 09:19 10/11/17 09:19 10/11/17 09:19 10/11/17 09:19 Vital Signs Reviewed: Yes Appearance: Positive: Well-Appearing, No Pain Distress, Well-Nourished Skin: Positive: Warm, Skin Color Reflects Adequate Perfusion, Dry. Negative: Cold, Numb, Cyanosis @, Pale, Erythema @ Head/Face: Positive: Normal Head/Face Inspection Eyes: Positive: EOMI, FRANCHESCA, Conjunctiva Clear ENT: Positive: Hearing grossly normal, Pharynx normal, Nasal congestion, Nasal drainage, TMs normal, TM red - mildly, Uvula midline. Negative: TM bulging, TM dull, Tonsillar swelling, Tonsillar exudate Dental: Negative: Cervical Lymphadenopathy Neck: Positive: Supple, Nontender, No Lymphadenopathy Respiratory/Lung Sounds: Positive: Clear to Auscultation, Breath Sounds Present. Negative: Rales, Rhonchi, Wheezes Cardiovascular: Positive: Normal, RRR, Pulses are Symmetrical in both Upper and Lower Extremities. Negative: Murmur, Rub Abdomen Description: Positive: Nontender, Soft Bowel Sounds: Positive: Present Musculoskeletal: Positive: Normal, Strength/ROM Intact Neurological: Positive: Normal, Sensory/Motor Intact, Alert, Oriented to Person Place, Time Diagnostics - Vital Signs Vital Signs Temp Pulse Resp BP Pulse Ox 10/11/17 09:19 98.3 F 81 16 125/75 96 - Laboratory Lab Statement: Any lab studies that have been ordered have been reviewed, and results considered in the medical decision making process. - Radiology chest Xray Interpretation: No Acute Changes - No radiographic evidence of acute cardiopulmonary disease. Radiology Interpretation Completed By: Radiologist Flu Symptom Course/Dx - Course Course Of Treatment: normal vitals, slightly decreased o2 sat. chest xray and influena culture obtained and negative. appears to be suffering from an URI. symptomatic measures/mucinex and saline/flonase. rest. fluids, vitamins. follow up pcp. - Diagnoses Differential Diagnosis/HQI/PQRI: Positive: Bronchitis, Influenza, Pneumonia, Upper Respiratory Infection Provider Diagnoses: Upper respiratory infection Discharge - Discharge Plan Condition: Good Disposition: HOME Prescriptions: Benzonatate CAP* [Tessalon 100 MG CAP*] 100 mg PO TID #21 cap Fluticasone NASAL SPRAY 50MCG* [Flonase NASAL SPRAY 50MCG*] 2 spray BOTH NARES DAILY #1 btl Patient Education Materials: Upper Respiratory Infection (ED), Acute Bronchitis (ED) Referrals: Quentin Martinez MD [Primary Care Provider] - Additional Instructions: Increase fluid intake, get plenty of rest. Recommend taking OTC Mucinex daily, in the morning, for the next 7 days. Take tessalon pearls as needed during day for coughing. Take nyquil at bedtime to help with cough, congestion and sleeping. Tylenol/ibuprofen for any headache or fever/chills. Flonase and saline nasal rinses to help with nasal/sinus congestion. Warm compresses over nose and hot showers. Extra pillow at bedtime. Follow up with PCP in 3-5 days to ensure improvement. IF symptoms worsen, do not improve, or new symptoms develop please seek medical attention, as discussed.
--- NOTE | 2017-10-11 11:28 | RAD ---
INDICATION: Productive cough x10 days COMPARISON: Chest x-ray dated March 17, 2011 TECHNIQUE: PA and lateral views of the chest were obtained. FINDINGS: The heart and mediastinum are normal in size and contour. The lungs are grossly clear. There is no evidence of large pleural effusion. Visualized bones are normal for the patient's age. There is no radiographic evidence of free air beneath the diaphragm IMPRESSION: No radiographic evidence of acute cardiopulmonary disease.
[2017-10-11 12:33] VITALS: BP 148/91
== END 2017-10-11 12:32 | disposition home or self-care (01) ==
LOC: ED 09:15
DX: J06.9 Acute upper respiratory infection, unspecified (principal); Z87.891 Personal history of nicotine dependence; Z88.0 Allergy status to penicillin
CPT/HCPCS: 71046; 87502; 99282

== ENCOUNTER 2018-11-19 03:56 | Emergency (ER) | payer OTHER ==
--- NOTE | 2018-11-19 04:19 | ED ---
Lower Extremity - HPI Summary HPI Summary: The patient is a 43 y/o M presenting to [facility] with a chief complaint of sudden onset throbbing pain in the left Achilles' tendon three days ago. He reports that he has been trying to go on walks more often, so four days ago he went on a long walk. The next day, he woke up with pain in his ankle that is aggravated by putting pressure on the ankle, but he is still able to ambulate. The pain is currently rated 6/10 in severity. He denies CP and SOB. He denies any injury to the ankle. Hx of psoriasis, HTN, and HLD. - History of Current Complaint Chief Complaint: EDExtremityLower Stated Complaint: LEFT ANKLE PER PT Time Seen by Provider: 11/19/18 04:10 Hx Obtained From: Patient Mechanism Of Injury: Unknown Onset of Pain: Hours - potentially one day later Onset/Duration: Still Present - three days ago Severity Initially: Moderate Severity Currently: Moderate Pain Intensity: 6 Pain Scale Used: 0-10 Numeric Timing: Constant, Lasting Days Location: Is Discrete @ - Achilles' tendon of left ankle Character Of Pain: Throbbing Associated Signs And Symptoms: Positive: Other - NEGATIVE: CP, SOB Aggravating Factor(s): Ambulation Alleviating Factor(s): Rest Able to Bear Weight: Yes - Allergies/Home Medications Allergies/Adverse Reactions: Allergies Allergy/AdvReac Type Severity Reaction Status Date / Time Penicillins Allergy Rash Verified 10/11/17 09:19 seasonal Allergy Unknown Congestion Uncoded 04/01/17 05:15 PMH/Surg Hx/FS Hx/Imm Hx Endocrine/Hematology History: Denies: Hx Anticoagulant Therapy, Hx Diabetes, Hx Thyroid Disease Cardiovascular History: Reports: Hx Hypercholesterolemia, Hx Hypertension, Other Cardiovascular Problems/Disorders - HYPERTENSION Denies: Hx Congestive Heart Failure, Hx Pacemaker/ICD Respiratory History: Reports: Hx Sleep Apnea - evaluation for 10/2013, Other Respiratory Problems/Disorders - ex-smoker Denies: Hx Asthma, Hx Chronic Obstructive Pulmonary Disease (COPD) GI History: Reports: Hx Gastroesophageal Reflux Disease, Other GI Disorders - HYPERCHOLESTEROLEMIA History: Reports: Hx Kidney Stones - hx Denies: Hx Dialysis, Hx Renal Disease Musculoskeletal History: Reports: Other Musculoskeletal History - severe morbid obesity Denies: Hx Osteoporosis Neurological History: Denies: Hx Dementia, Hx Seizures Psychiatric History: Reports: Hx Anxiety, Hx Depression - meds Denies: Hx Substance Abuse - Surgical History Surgery Procedure, Year, and Place: n/a Infectious Disease History: No Infectious Disease History: Denies: Hx Hepatitis, Hx Human Immunodeficiency Virus (HIV), Traveled Outside the [place] in Last 30 Days - Family History Known Family History: Positive: Hypertension, Other - MS, hypercholesteremia - Social History Alcohol Use: Rare Hx Substance Use: No Substance Use Type: Reports: None Hx Tobacco Use: Yes - QUIT 04/2006 Smoking Status (MU): Former Smoker Do You Chew or Dip Tobacco: No Have You Chewed or Dipped Tobacco in the LAST YEAR: No Review of Systems Negative: Chest Pain Negative: Shortness Of Breath Positive: Other - pain in Manley's tendon of left ankle All Other Systems Reviewed And Are Negative: Yes Physical Exam - Summary Physical Exam Summary: Appearance: well appearing, no pain distress Skin: warm, dry, reflects adequate perfusion, Silvery plaques with erythema on extensor surfaces and legs consistent with psoriasis Head/face: normal Eyes: EOMI, FRANCHESCA ENT: mucous membranes moist Neck: supple, non-tender Respiratory: CTA, breath sounds present Cardiovascular: RRR, pulses symmetrical Abdomen: non-tender, soft Bowel Sounds: present Musculoskeletal: strength/ROM intact, Tenderness in left Achilles tendon area Neuro: normal, sensory motor intact, A&Ox3 Triage Information Reviewed: Yes Vital Signs On Initial Exam: Initial Vitals Temp Pulse Resp BP Pulse Ox 97.8 F 81 18 131/88 98 11/19/18 03:59 11/19/18 03:59 11/19/18 03:59 11/19/18 03:59 11/19/18 03:59 Vital Signs Reviewed: Yes Diagnostics - Vital Signs Vital Signs Temp Pulse Resp BP Pulse Ox 11/19/18 03:59 97.8 F 81 18 131/88 98 - Laboratory Lab Statement: Any lab studies that have been ordered have been reviewed, and results considered in the medical decision making process. - Radiology Left Ankel XR Radiology Interpretation Completed By: Radiologist Summary of Radiographic Findings: No calcinosis of the Achilles tendon. ED physician has reviewed this report. Re-Evaluation - Re-Evaluation First Eval Re-Evaluation Time: 05:30 Change: Unchanged Comment: We discussed imaging results and discharge home. Lower Extremity Course/Dx - Course Course Of Treatment: Nurses notes reviewed. Overweight gentleman with left Achilles discomfort without injury. Pain is well controlled with NSAIDs. Extensive psoriasis. Patient had x-ray which was negative for any calcinosis. Ambulatory without difficulty. Treated with NSAID, steroid here and will continue NSAID outpatient. Refer to podiatry. - Diagnoses Differential Diagnosis/HQI/PQRI: Positive: Arthritis, Gout, Infection, Sprain, Strain, Tendonitis, Tenosynovitis Provider Diagnoses: Achilles tendinitis, left leg Discharge - Sign-Out/Discharge Documenting (check all that apply): Patient Departure - Patient will be discharged home. Patient Received Moderate/Deep Sedation with Procedure: No - Discharge Plan Condition: Good Disposition: HOME Prescriptions: Naproxen [Naproxen 500 mg tab] 500 mg PO BID PRN #14 tablet PRN Reason: Pain Patient Education Materials: Achilles Tendinitis (ED) Referrals: Jaron Gunn DPM [Doctor of Podiatric Medicine] - Octavia Hughes MD [Primary Care Provider] - Additional Instructions: Weight-bear as tolerated. Ice to the area. Call the propulsion engineer today to schedule prompt follow-up. No strenuous activity, running or jumping. - Billing Disposition and Condition Condition: GOOD Disposition: Home - Attestation Statements Document Initiated by Darrelibmassiel: Yes Documenting Scribe: Lula Torres Provider For Whom Jenna is Documenting (Include Credential): Dr. Natalio Jhaveri MD Scribe Attestation: Lula Beavers scribed for Dr. Natalio Jhaveri MD on 11/19/18 at 0554. Scribe Documentation Reviewed: Yes Provider Attestation: The documentation as recorded by the Lula siddiqui accurately reflects the service I personally performed and the decisions made by me, Dr. Natalio Jhaveri MD Status of Scribmassiel Document: Viewed
[2018-11-19] MEDS ORDERED: Dexamethasone IV* 4 MG/ML 1 ML (4 MG) IM ONE (05:01)
[2018-11-19] MEDS ORDERED: Ketorolac INJ* 60 MG/2 ML VIAL IM ONE (05:02)
[2018-11-19 05:27] VITALS: BP 114/62
== END 2018-11-19 05:26 | disposition home or self-care (01) ==
LOC: ED 03:56
DX: M76.62 Achilles tendinitis, left leg (principal)
CPT/HCPCS: 96372; 99282; J1100; J1885

== ENCOUNTER 2019-05-04 04:50 | Emergency (ER) | payer OTHER ==
[2019-05-04] MEDS ORDERED: Ibuprofen TAB* 600 MG PO ONE (05:13)
--- NOTE | 2019-05-04 05:18 | ED ---
Lower Extremity - HPI Summary HPI Summary: Pt is a 44 y/o M presenting to the ED with a chief complaint of L ankle pain initially onset a couple of days ago that has not gone away. He states he thought he sprained it, as he walks frequently d/t not having a car, but he has never experienced edema in his ankle like this. He denies bruising, fever, chills, nausea, or vomiting. He is on Humira for psoriasis, but denies any recent medical changes. - History of Current Complaint Chief Complaint: EDExposureHeatCold Stated Complaint: ANKLE PAIN PER PT Time Seen by Provider: 05/04/19 05:03 Hx Obtained From: Patient Mechanism Of Injury: Unknown Onset of Pain: Days Onset/Duration: Still Present Severity Initially: Mild Severity Currently: Mild Pain Intensity: 3 Pain Scale Used: 0-10 Numeric Timing: Constant, Lasting Days Location: Is Discrete @ - L ankle Associated Signs And Symptoms: Positive: Swelling. Negative: Bruising Aggravating Factor(s): Nothing Alleviating Factor(s): Nothing Able to Bear Weight: Yes - Allergies/Home Medications Allergies/Adverse Reactions: Allergies Allergy/AdvReac Type Severity Reaction Status Date / Time Penicillins Allergy Rash Verified 05/04/19 04:52 seasonal Allergy Unknown Congestion Uncoded 05/04/19 04:52 PMH/Surg Hx/FS Hx/Imm Hx Previously Healthy: Yes Endocrine/Hematology History: Denies: Hx Anticoagulant Therapy, Hx Diabetes, Hx Thyroid Disease Cardiovascular History: Reports: Hx Hypercholesterolemia, Hx Hypertension, Other Cardiovascular Problems/Disorders - HYPERTENSION Denies: Hx Congestive Heart Failure, Hx Pacemaker/ICD Respiratory History: Reports: Hx Sleep Apnea - evaluation for 10/2013, Other Respiratory Problems/Disorders - ex-smoker Denies: Hx Asthma, Hx Chronic Obstructive Pulmonary Disease (COPD) GI History: Reports: Hx Gastroesophageal Reflux Disease, Other GI Disorders - HYPERCHOLESTEROLEMIA History: Reports: Hx Kidney Stones - hx Denies: Hx Dialysis, Hx Renal Disease Musculoskeletal History: Reports: Other Musculoskeletal History - severe morbid obesity Denies: Hx Osteoporosis Neurological History: Denies: Hx Dementia, Hx Seizures Psychiatric History: Reports: Hx Anxiety, Hx Depression - meds Denies: Hx Substance Abuse - Surgical History Surgery Procedure, Year, and Place: n/a Infectious Disease History: No Infectious Disease History: Denies: Hx Hepatitis, Hx Human Immunodeficiency Virus (HIV), Traveled Outside the [place] in Last 30 Days - Family History Known Family History: Positive: Hypertension, Other - MS, hypercholesteremia - Social History Alcohol Use: Rare Hx Substance Use: No Substance Use Type: Reports: None Hx Tobacco Use: Yes - QUIT 04/2006 Smoking Status (MU): Former Smoker Review of Systems Negative: Fever, Chills Negative: Vomiting, Nausea Positive: Arthralgia, Edema Negative: Bruising All Other Systems Reviewed And Are Negative: Yes Physical Exam - Summary Physical Exam Summary: Constitutional: Well-developed, Well-nourished, Alert. (-) Distressed Skin: Warm, Dry HENT: Normocephalic; Atraumatic Eyes: Conjunctiva normal Neck: Musculoskeletal ROM normal neck. (-) JVD, (-) Stridor, (-) Tracheal deviation Cardio: Rhythm regular, rate normal, Heart sounds normal; Intact distal pulses; Radial pulses are 2+ and symmetric. (-) Murmur Pulmonary/Chest wall: Effort normal. (-) Respiratory distress, (-) Wheezes, (-) Rales Abd: Soft, (-) tenderness, (-) Distension, (-) Guarding, (-) Rebound Musculoskeletal: Edema to the L ankle but no overlying erythema or warmth. Full ROM with active and passive modality. No bony tenderness. DP/PT pulse 2+. Lymph: (-) Cervical adenopathy Neuro: Alert, Oriented x3 Psych: Mood and affect Normal Triage Information Reviewed: Yes Vital Signs On Initial Exam: Initial Vitals Temp Pulse Resp BP Pulse Ox 98.6 F 78 17 165/99 98 05/04/19 04:51 05/04/19 04:51 05/04/19 04:51 05/04/19 04:51 05/04/19 04:51 Vital Signs Reviewed: Yes Procedures - Sedation Patient Received Moderate/Deep Sedation with Procedure: No Diagnostics - Vital Signs Vital Signs Temp Pulse Resp BP Pulse Ox 05/04/19 04:51 98.6 F 78 17 165/99 98 - Laboratory Lab Statement: Any lab studies that have been ordered have been reviewed, and results considered in the medical decision making process. Lower Extremity Course/Dx - Course Course Of Treatment: Patient is here with left ankle swelling. Patient's physical exam was not consistent with septic arthritis. Patient had no trauma necessitating x-ray. Patient is likely suffering from arthritis given his frequent walking and obesity. Patient had an [place] wrap placed and was given an adult dose of ibuprofen. Patient was educated on arthritis management - Diagnoses Provider Diagnoses: Arthritis of left ankle Discharge ED - Sign-Out/Discharge Documenting (check all that apply): Patient Departure - Discharge Plan Condition: Stable Disposition: HOME Patient Education Materials: R.I.C.E. Treatment (ED) Referrals: Octavia Hughes MD [Primary Care Provider] - Additional Instructions: Take 600mg Ibuprofen as needed for your pain. Follow the RICE treatment outlined in the patient education materials I've provided you. Come back to the emergency department with new or worsening symptoms, such as fever or inability to walk. Call your primary care provider's office when they open this morning to make an appointment for follow-up as soon as possible. - Billing Disposition and Condition Condition: STABLE Disposition: Home - Attestation Statements Document Initiated by Jenna: Yes Documenting Scribe: Ashlyn Stratton Provider For Whom Jenna is Documenting (Include Credential): Braden Zheng MD. Scribe Attestation: Ashlyn Beavers, scribed for Braden Zheng MD. on 05/04/19 at 0529. Scribe Documentation Reviewed: Yes Provider Attestation: The documentation as recorded by the Ashlyn siddiqui accurately reflects the service I personally performed and the decisions made by Braden ledezma MD. Status of Scribe Document: Viewed
[2019-05-04 05:38] VITALS: BP 0/0
== END 2019-05-04 05:37 | disposition home or self-care (01) ==
LOC: ED 04:50
DX: M19.072 Primary osteoarthritis, left ankle and foot (principal); E78.00 Pure hypercholesterolemia, unspecified; I10 Essential (primary) hypertension; K21.9 Gastro-esophageal reflux disease without esophagitis; F41.9 Anxiety disorder, unspecified; F32.9 Major depressive disorder, single episode, unspecified; Z87.891 Personal history of nicotine dependence; Z88.0 Allergy status to penicillin; Z79.899 Other long term (current) drug therapy
CPT/HCPCS: 99282; A9270-GY

== ENCOUNTER 2020-10-05 02:37 | Inpatient (IN) ==
[2020-10-05] MEDS ORDERED: NS 0.9% 1000 ml BAG 1,000 ML IV ONE ×2 (02:49→04:14)
[2020-10-05] MEDS ORDERED: Ondansetron 4 mg VIAL 2 MG/ML 2 ml VIAL IV ONE (02:51)
[2020-10-05 03:53] LABS: ABS Basophils 0.1 10^3/ul (0-0.2); ABS Eosinophils 0.1 10^3/ul (0-0.6); ABS Lymphocytes 1.4 10^3/ul (1.0-4.8); ABS Monocytes 0.7 10^3/ul (0-0.8); ABS Neutrophils 10.7 10^3/ul (1.5-7.7); Eosinophil % 0.8 %; Hematocrit 39 % (42-52); Hemoglobin 12.9 g/dL (14.0-18.0); Lymphocyte % 10.6 %; Mean Corpuscular HGB Conc 33 g/dL (31-36); Mean Corpuscular Hemoglobin 28 pg (27-31); Mean Corpuscular Volume 86 fL (80-94); Platelet Count 339 10^3/uL (150-450); Red Cell Distribution Width 14 % (10-15)
[2020-10-05 04:02] LABS: INR 1.19 (0.82-1.09)
[2020-10-05 04:10] LABS: ALT 22 U/L (7-52); AST 17 U/L (13-39); Albumin 3.5 g/dL (3.2-5.2); Albumin/Globulin Ratio 1.3 (1-3); Alkaline Phosphatase 66 U/L (34-104); Anion Gap 10 mmol/L (2-11); BUN/Creatinine Ratio 14.1 (8-20); Blood Urea Nitrogen 26 mg/dL (6-24); C Reactive Protein 4.44 mg/L (<8.01); CO2 Carbon Dioxide 24 mmol/L (22-32); Calcium 9.5 mg/dL (8.6-10.3); Chloride 105 mmol/L (101-111); EGFR African American 48.5 (>60); EGFR Non-African American 40.1 (>60); Globulin 2.8 g/dL (2-4); Glucose 239 mg/dL (70-100); Lipase 28 U/L (11.0-82.0); Potassium 4.2 mmol/L (3.5-5.0); Sodium 139 mmol/L (135-145); Total Protein 6.3 g/dL (6.4-8.9)
[2020-10-05] MEDS ORDERED: Pantoprazole VIAL 40 MG VIAL IV ONE (04:16)
[2020-10-05] MEDS ORDERED: Iodixanol (CONTRAST) 320 MG/ML 100 ML SDV IV ONE (05:46)
[2020-10-05] MEDS ORDERED: Lactated Ringers 1000 ml BAG 1,000 ML IV SCH (07:00)
[2020-10-05 07:01] LABS: Hematocrit 35 % (42-52); Hemoglobin 11.5 g/dL (14.0-18.0); Mean Corpuscular HGB Conc 33 g/dL (31-36); Mean Corpuscular Hemoglobin 28 pg (27-31); Mean Corpuscular Volume 86 fL (80-94); Mean Platelet Volume 8.7 fL (7.4-10.4); Platelet Count 261 10^3/uL (150-450); Red Blood Count 4.08 10^6 /uL (4.18-5.48); Red Cell Distribution Width 14 % (10-15); White Blood Count 11.4 10^3/uL (3.5-10.8)
[2020-10-05 07:03] LABS: Cholesterol 165 mg/dL; LDL Cholesterol 105 mg/dL; Triglycerides 139 mg/dL
[2020-10-05 07:20] LABS: ALT 19 U/L (7-52); Albumin 3.3 g/dL (3.2-5.2); Albumin/Globulin Ratio 1.4 (1-3); Alkaline Phosphatase 58 U/L (34-104); BUN/Creatinine Ratio 17.7 (8-20); Blood Urea Nitrogen 28 mg/dL (6-24); CO2 Carbon Dioxide 24 mmol/L (22-32); Calcium 8.6 mg/dL (8.6-10.3); Chloride 109 mmol/L (101-111); EGFR African American 58.2 (>60); EGFR Non-African American 48.1 (>60); Globulin 2.3 g/dL (2-4); Glucose 125 mg/dL (70-100); Sodium 138 mmol/L (135-145); Total Protein 5.6 g/dL (6.4-8.9)
[2020-10-05 08:32] LABS: Anion Gap 5 mmol/L (2-11)
[2020-10-05 10:09] LABS: Urine Appearance Cloudy; Urine Bilirubin Negative (Negative); Urine Blood 2+ (Negative); Urine Color Yellow; Urine Glucose Negative (Negative); Urine Ketones Negative (Negative); Urine Nitrite Negative (Negative); Urine Protein 1+(30 mg/dL) (Negative); Urine Specific Gravity 1.056 (1.010-1.030); Urine Urobilinogen Negative (Negative)
[2020-10-05 10:18] LABS: Urine Bacteria Absent (Absent); Urine Red Blood Cell 2+(6-10/hpf) (Absent); Urine Squamous Epithelial Cell Present (Absent); Urine White Blood Cell Absent (Absent)
[2020-10-05 10:50] LABS: Hematocrit 35 % (42-52); Hemoglobin 11.6 g/dL (14.0-18.0)
[2020-10-05 12:31] LABS: Potassium Redraw 2.8 mmol/L (3.5-5.0)
[2020-10-05 14:23] LABS: Hematocrit 38 % (42-52); Hemoglobin 12.6 g/dL (14.0-18.0)
[2020-10-05] MEDS ORDERED: Lactated Ringers 1000 ml BAG 1,000 ML IV ONE (16:47)
[2020-10-05 18:08] LABS: % Iron Saturation 22 % (15-55); Iron 79 ug/dL (50-212); Total Iron Binding Capacity 361 mcg/dL (250-450); Transferrin 258 mg/dL (203-362); Unsaturated Iron Binding < 346 ug/dL
[2020-10-05] MEDS: Magnesium CITRATE LIQ 300 ML BTL PO ONE (18:28)
[2020-10-05 18:29] LABS: Ferritin 9.2 ng/mL (24-336)
[2020-10-05 18:48] LABS: Hematocrit 34 % (42-52); Hemoglobin 11.1 g/dL (14.0-18.0)
[2020-10-05] MEDS: PEG 3000 GI LAVAGE 1 GALLON PO ONE ×2 (18:56→22:37)
[2020-10-05 22:28] LABS: Hematocrit 36 % (42-52); Hemoglobin 11.8 g/dL (14.0-18.0)
[2020-10-05] MEDS: Pantoprazole VIAL 40 MG VIAL IV SCH (22:37)
[2020-10-06 00:55] LABS: Hematocrit 33 % (42-52); Hemoglobin 11.3 g/dL (14.0-18.0)
[2020-10-06] MEDS ORDERED: Magnesium CITRATE LIQ 300 ML BTL PO ONE (05:27)
[2020-10-06] MEDS: Magnesium CITRATE LIQ 300 ML BTL PO ONE (05:50)
[2020-10-06 06:20] LABS: BUN/Creatinine Ratio 19.5 (8-20); Calcium 8.3 mg/dL (8.6-10.3); EGFR African American 77.7 (>60); EGFR Non-African American 64.2 (>60); Potassium 3.8 mmol/L (3.5-5.0)
[2020-10-06 06:21] LABS: Hematocrit 30 % (42-52); Hemoglobin 9.9 g/dL (14.0-18.0)
[2020-10-06] MEDS: Pantoprazole VIAL 40 MG VIAL IV SCH ×2 (08:29→12:30)
[2020-10-06] MEDS ORDERED: Potassium Chlor 20 meq TAB.ER PO SCH (09:00)
[2020-10-06] MEDS ORDERED: Midazolam 10 mg/10 ml VIAL 1 mg/ml 10 ml VIAL (10 mg) ONE (11:51)
[2020-10-06] MEDS ORDERED: fentaNYL 100 mcg/2 ml 50 MCG/ML VIAL ONE (11:51)
[2020-10-06 14:25] VITALS: BP 148/72
== END 2020-10-06 15:19 | disposition home or self-care (01) | DRG 254 ==
LOC: ED 02:37 → MEDTELE 05:29
PROVIDERS: ADMIT Internal Medicine; ATTEND Internal Medicine